=== PATIENT | female | born 1985 | race Caucasian/White ===

== ENCOUNTER 2017-07-26 05:39 | Inpatient (IN) | payer OTHER ==
[~2017-07-26] VITALS: Ht 162.6 cm; Wt 86.8 kg
[~2017-07-26 05:39] MED LIST: PRENATAL TABLE1 EAC3 PO; TUMS500 MG PO; [UNRECOGNIZED DRUG - OTHER] PO
[2017-07-26 06:20] VITALS: BP 135/64
[2017-07-26 08:05] VITALS: BP 115/61
[2017-07-26] MEDS ORDERED: ENDOCET 5-3251 EACH PO (10:47)
[2017-07-26] MEDS ORDERED: IBUPROFEN800 MG PO (10:47)
[2017-07-26 11:00] VITALS: BP 111/56
[2017-07-26 19:10] VITALS: BP 116/59
[2017-07-26 21:00] VITALS: BP 115/58
[2017-07-26 23:00] VITALS: BP 100/65
[2017-07-27 03:20] VITALS: BP 102/55
[2017-07-27 07:04] LABS: BASOPHIL (%) 0.3 % (0-1); EOSINOPHIL (%) 1.1 % (0-5); EOSINOPHIL COUNT 0.2 K/uL (0-0.3); IMMATURE GRANULOCYTE (%) 1.5 % (0.0-0.7); LYMPHOCYTE (%) 16.4 % (15-42); LYMPHOCYTE COUNT 2.2 K/uL (1.0-2.8); MCH 29.8 PG (29.0-34.0); MCV 90.2 FL (83-99); MONOCYTE (%) 8.4 % (3-12); MONOCYTE COUNT 1.2 K/uL (0-0.8); NEUTROPHIL (%) 72.3 % (45-76); NEUTROPHIL COUNT 9.8 K/uL (1.8-6.4); PLATELET COUNT 262 K/uL (156-360); RBC DIS.WIDTH-CV 12.6 % (11.8-14.6); RBC DIS.WIDTH-SD 41.5 % (39-53); RED BLOOD COUNT 3.66 M/uL (3.80-5.20); WHITE BLOOD COUNT 13.6 K/uL (4.1-10.2)
[2017-07-27 07:05] LABS: HEMOGLOBIN 10.9 G/DL (11.9-15.5)
[2017-07-27 08:09] VITALS: BP 97/56
[2017-07-27 11:10] VITALS: BP 106/52
[2017-07-27 15:11] VITALS: BP 121/54
[2017-07-27 19:19] VITALS: BP 117/70
[2017-07-27 23:10] VITALS: BP 95/54
[2017-07-28 03:14] VITALS: BP 101/48
[2017-07-28 07:56] VITALS: BP 112/55
== END 2017-07-28 13:50 | disposition home or self-care (01) | DRG 766 ==
LOC: 2WEST 05:39 → 2SOUTH 13:58 → 2WEST 07-28 13:50
PROVIDERS: Obstetrics & Gynecology Gynecology
PROC: 10D00Z1 Extraction of Products of Conception, Low, Open Approach (ICD-10-PCS; principal; 2017-07-26)
DX: O32.8XX0 Maternal care for other malpresentation of fetus, not applicable or unspecified (principal); Z3A.40 40 weeks gestation of pregnancy; Z37.0 Single live birth; O99.284 Endocrine, nutritional and metabolic diseases complicating childbirth; E03.9 Hypothyroidism, unspecified; O99.214 Obesity complicating childbirth; E66.9 Obesity, unspecified; Z68.32 Body mass index [BMI] 32.0-32.9, adult; Z88.0 Allergy status to penicillin
CPT/HCPCS: 36415; 80053; 85025; 86850; 86900; 86901; 90686; J1100; J1580; J2274; J2370; J2405; J7050; J7120